=== PATIENT | female | born 1985 | race Caucasian/White ===

== ENCOUNTER → 2023-09-08 12:26 | Outpatient (REF) | payer OTHER, SELFPAY | LOC: WDC 12:26 | PROVIDERS: ATTENDING PHYSICIAN Nurse Practitioner Family; FAMILY PHYSICIAN Physician Assistant Medical | DX: Z12.31 Encounter for screening mammogram for malignant neoplasm of breast (principal) | CPT/HCPCS: 77063; 77067 ==

== ENCOUNTER → 2023-12-04 13:02 | Outpatient (REF) | payer OTHER, SELFPAY | LOC: MRI 3T 13:02 | PROVIDERS: ATTENDING PHYSICIAN Physician Assistant; FAMILY PHYSICIAN Physician Assistant Medical | DX: M54.16 Radiculopathy, lumbar region (principal); M53.3 Sacrococcygeal disorders, not elsewhere classified | CPT/HCPCS: 72148 ==

== ENCOUNTER → 2024-01-11 17:36 | Outpatient (REF) | payer OTHER, SELFPAY | LOC: PAVMRI 17:36 | PROVIDERS: ATTENDING PHYSICIAN Physician Assistant; FAMILY PHYSICIAN Physician Assistant Medical | DX: M25.552 Pain in left hip (principal); R10.32 Left lower quadrant pain | CPT/HCPCS: 73721 ==

== ENCOUNTER 2025-01-29 09:18 | Emergency (ER) | payer MEDICAID, SELFPAY ==
[2025-01-29 09:24] VITALS: BP 113/77
[2025-01-29 11:01] VITALS: BP 105/73
[2025-01-29 11:15] LABS: Hematocrit 39.1 % (37.0-47.0); Hemoglobin 12.8 g/dL (12.0-16.0); Mean Corp Hgb Conc. 32.7 g/dL (33.0-37.0); Mean Corpuscular Volume 104.0 fL (81.0-99.0); Nucleated Red Blood Cells % 0 %; Platelet Count 255 10^3/uL (130-400); Red Cell Dist. Width 13.4 % (11.5-14.5)
--- NOTE | 2025-01-29 11:33 | ED.GENMED ---
History of Present Illness
General
Chief Complaint: Chest Pain
Source: patient
Exam Limitations: none
Time Seen by Provider: 01/29/25 10:58
Nursing documentation reviewed up to this point in time: agreed with
History of Present Illness
History of Present Illness:
39 yo female with h/o Celiac, Rob's thyroiditis, alcohol abuse, migraines, presents for chest pain, palpitations, tingling in her feet for the past 5 to 6 weeks, intermittent, no pattern of activity. Chest pains are sometimes fleeting and
sometimes she has to walk or run or just 'work through it.' In the past 2 weeks she has had several episodes of visual disturbances, described as 'blackening out of lateral peripheral vision in both eyes at the same time,' last episode was
yesterday while running, symptom subsided when she stopped and rested. States sometime her central vision 'blacks out.' Denies headache.
She has 'tried everything' for her migraines, used to see Neurologist but now sees a homeopathic who gave her homeopathic migraine med to use prn. She had 3 migraines last week, none since. she does get visual aura's but not like the ones she's had
lately.
She stopped taking her Levothyroxine 6 months ago as 'it wasn't doing anything for me.'
She is mainly concerned about her heart as she has history of PFO and has not followed with her floor space allocator as she should. She is requesting cardiology in this area.
She has not seen DENTURES LAB TECHNICIAN in years and feels she may be entering menopause
She has been under a lot of stress lately at home, feels safe at home, sees therapist once a week and exercises daily.
Past History
Past History
ED Past Medical History: Other (Rob's thyroiditis, celiac, alcohol abuse, migraines, PFO)
ED Past Surgical History: None
Social History
Tobacco: Non-smoker
Alcohol: Daily
Personal:
Living: with family
Employment: Not employed
Review of Systems
Review of Systems
Allergies reviewed?: Yes
All Other Systems: ROS reviewed and negative except as documented in HPI and ROS
Constitutional: Reports fatigue; Denies fever
EENT: Reports other (visual disturbance as noted in HPI)
Respiratory: Denies trouble breathing
Cardiac: Reports chest pain and palpitations
ABD/GI: Denies abdominal pain, nausea, vomiting or diarrhea
: Denies dysuria, frequency or difficulty voiding
Musculoskeletal: Reports no symptoms
Skin: Reports no symptoms
Neurological: Denies dizzy, headache, weakness or numbness
Phy Exam
Physical Exam
Physical Exam:
GENERAL: No acute distress. A&Ox3.
CONSTITUTIONAL: Afebrile.
EYES: clear, conjunctivae normal
ENMT: moist mucus membranes, Pharynx nl, PERRL, good red reflex bilaterally, sharp vessels and optic disc. Visual acuity noted
RESPIRATORY: Regular respirations, nonlabored, lungs clear.
CARDIOVASCULAR: Regular rate and rhythm, no murmurs, no rubs.
GI: Soft, nontender, normal BS
MUSCULOSKELETAL: Moves with ease. Well perfused.
SKIN: Warm, dry, pink
PSYCH: Normal mood and affect. Well kept, interactive and appropriate
NEUROLOGIC: Awake, alert and oriented. Cranial nerves II through XII intact. Ambulates well with steady gait. No focal neurological deficits
Scores
Heart Score for Chest Pain Patients
STEMI patient?: Not applicable
Course
Orders/Labs/Results
Orders:
Orders
01/29/25 09:19
Electrocardiogram (*1) Urgent
Reason for Study: Chest Pain
EKG- Treatment ONCE
01/29/25 10:11
Test Result ONCE
01/29/25 11:02
Complete Blood Count/With Diff Urgent
Comprehensive Metabolic Panel Urgent
HCG, Serum Qualitative Screen Urgent
TSH Reflex To Free T4 Urgent
Comment: ADD
Troponin I Urgent
01/29/25 11:35
Add On- LAB Urgent
Tests Added?: TSH, reflex T4
01/29/25 13:40
Visual Acuity- Treatment ONCE
Abnormal Lab Results
01/29/25
11:02
RBC 3.76 L 10^6/uL
(4.20-5.40)
MCV 104.0 H fL
(81.0-99.0)
MCH 34.0 H pg
(27.0-31.0)
MCHC 32.7 L g/dL
(33.0-37.0)
Absolute Lymphs (auto) 1.0 L 10^3/uL
(1.2-3.4)
Lymphocytes % 17.1 L %
(20.5-51.1)
Sodium 134 L mmol/L
(135-145)
Glucose 139 H mg/dl
(70-99)
Alkaline Phosphatase 35 L U/L
(38-126)
01/29/25 11:02
01/29/25 11:02
Vital Signs
Initial and Last Documented VS:
Initial Vital Signs
Temp Pulse Resp BP Pulse Ox
98 F 67 16 113/77 100
01/29/25 09:24 01/29/25 09:24 01/29/25 09:24 01/29/25 09:24 01/29/25 09:24
Last Documented Vital Signs
Temp Pulse Resp BP Pulse Ox
98 F 55 12 118/72 99
01/29/25 09:24 01/29/25 14:15 01/29/25 14:15 01/29/25 14:00 01/29/25 14:15
MDM/Problems Addressed
Differential Diagnosis Includes:
ND, PVC's, PAC's, dehydration, atypical migraine with aura, microemboli
MDM/Problems Addressed:
39 yo female with h/o Celiac, Rob's thyroiditis, alcohol abuse, migraines, presents for chest pain, palpitations, tingling in her feet for the past 5 to 6 weeks, intermittent, no pattern of activity. Chest pains are sometimes fleeting and
sometimes she has to walk or run or just 'work through it.' In the past 2 weeks she has had several episodes of visual disturbances, described as 'blackening out of lateral peripheral vision in both eyes at the same time,' last episode was
yesterday while running, symptom subsided when she stopped and rested. States sometime her central vision 'blacks out.' Denies headache.
She has 'tried everything' for her migraines, used to see Neurologist but now sees a homeopathic who gave her homeopathic migraine med to use prn. She had 3 migraines last week, none since. she does get visual aura's but not like the ones she's had
lately.
She stopped taking her Levothyroxine 6 months ago as 'it wasn't doing anything for me.'
She is mainly concerned about her heart as she has history of PFO and has not followed with her floor space allocator as she should. She is requesting cardiology in this area.
She has not seen DENTURES LAB TECHNICIAN in years and feels she may be entering menopause
She has been under a lot of stress lately at home, feels safe at home, sees therapist once a week and exercises daily.
CBC, CMP with no clinically significant abnormalities
hCG negative
EKG NSR
Troponin WNL
Afebrile, NAD
Eye exam is normal, visual acuity noted. Recommend follow-up with ophthalmology.
Workup is negative for any cardiac abnormality. Patient requesting to be referred to cardiology as she has PFO and has not seen a floor space allocator for follow-up as she should
Pt ambulated out with normal gait at discharge
Consulted ophthalmology Dr. Newton who brought up microemboli, pt has no other neuro symptoms.
She was referred to neurology and cardiology.
Consulted Dr. Lundy, Neurology who agrees with neuro eval texts: 'Sounds like hypotension/ panic. I would have her evaluated although not urgent I don�t think.'
*Pulse Oximetry
SaO2: 100
Oxygen Mode of Delivery: Room air
Patient hypoxic: not evaluated
*EKG
EKG Intrepretation Date: 01/29/25
Interpretation: normal
Heart Rate: 61
Rate: normal
Rhythm: sinus
[place]: normal axis
Interval: normal interval
QRS Pattern: normal QRS
Ischemia: no ischemia
*Critical Care Note
Total Time (30-74mins, 75-104mins- exclusive of procedures): Not Applicable
ED Attending Note
-
Portions of this chart may have been created with voice recognition software.� Occasional wrong word or��sound alike� substitutions may have occurred due to the inherent limitations of voice recognition software.
Discharge Plan
Departure
Patient Disposition: Home (Routine Discharge)
Date of Disposition: 01/29/25
Time of Disposition: 13:46
Patient with high blood pressure during this ER visit?: No
Condition: Good
Discharge Problem:
Atypical chest pain, Migraine with aura
Instructions: Patent foramen ovale, Migraine in adults, Chest Pain DCA Follow Up
Prescriptions:
No Action
therapeutic multivitamin Tablet
1 tab PO DAILY
thiamine HCl (vitamin B1) 100 mg Tablet
100 mg PO BID Qty: 30 0RF
sulfamethoxazole-trimethoprim 800-160 mg Tablet
1 tab PO BID Qty: 3 0RF
folic acid 1 mg Tablet
1 mg PO DAILY Qty: 30 0RF
Referrals:
Juan A Newton MD [Active, Ophthalmology] - Next open appointment
Minh Lundy MD [Active, Neurology] - Next open appointment
Ramon Jean MD [Active, Cardiology]
Kim Johnson PA-C [Family Provider, Family Practice]
Activity Restrictions/Additional Instructions:
As we discussed, there is no sign of heart attack, your EKG is normal
I sent your name to the cardiac hotline, someone should be calling you within the next couple of days to set up a cardiology appointment for a more thorough cardiac evaluation.
Make appointment with eye doctor
Make appointment with your PCP since you haven't been there in over a year.
Since the eye symptoms occurred while running yesterday, do not exercise or run, until cleared by the floor space allocator
Interventions
Interventions:
*Risk Screen - Suicide Last Done: 01/29/25 09:24
*General Assessment Last Done: 01/29/25 11:06
*Neglect/Abuse Screening Last Done: 01/29/25 09:24
*ED- Fall Risk Assessment Last Done: 01/29/25 11:06
*ED COVID-19 Vaccine History Last Done: 01/29/25 11:06
*Nursing Disposition Last Done: 01/29/25 14:20
ED- Cardiac Assessment Last Done: 01/29/25 11:06
Discharge Date and Time
Discharge Date/Time: 01/29/25 14:31
Print Language: EMIRATI
[2025-01-29 11:44] LABS: HCG, Serum Qualitative Screen Negative
[2025-01-29 11:48] LABS: ALT (SGPT) 12 U/L (0-35); AST (SGOT) 21 U/L (14-36); Albumin 4.3 g/dl (3.5-5.0); Alkaline Phosphatase 35 U/L (38-126); Blood Urea Nitrogen 7 mg/dl (7-17); Calcium 9.5 mg/dl (8.4-10.2); Carbon Dioxide 23 mmol/L (22-30); Chloride 105 mmol/L (98-107); Glucose 139 mg/dl (70-99); Potassium 4.3 mmol/L (3.5-5.1); Sodium 134 mmol/L (135-145); Total Protein 6.9 g/dl (6.3-8.2); eGFR > 60.00
[2025-01-29 12:00] VITALS: BP 107/69
[2025-01-29 12:18] LABS: Troponin I < 0.012 ng/ml
[2025-01-29 13:00] VITALS: BP 107/74
[2025-01-29 14:00] VITALS: BP 118/72
--- NOTE | 2025-02-02 08:49 | ED.ADDNOTE ---
ED Addendum
ED Addendum
ED Addendum Note:
I called pt for f/u check. She has appt with her PCP in 2 weeks. She has had no further eye symptoms and states she feels her symptoms were related to her stress and anxiety. Her PCP is helping arrange for cardiology f/u. She states she is feeling
much better.
== END 2025-01-29 14:31 | disposition home or self-care (01) ==
LOC: EMR 09:18
PROVIDERS: Emergency Medicine; EMERGENCY PHYSICIAN Emergency Medicine; FAMILY PHYSICIAN Physician Assistant Medical
DX: R07.89 Other chest pain (principal); R00.2 Palpitations; R20.2 Paresthesia of skin; H53.8 Other visual disturbances; R42 Dizziness and giddiness; G43.109 Migraine with aura, not intractable, without status migrainosus; R53.83 Other fatigue; E06.3 Autoimmune thyroiditis; K90.0 Celiac disease; Q21.12 Patent foramen ovale; Z73.3 Stress, not elsewhere classified
CPT/HCPCS: 99283; 80053; 84443; 84484; 84703; 85025; 93005